=== PATIENT | female | born 1990 | race Asian ===

== ENCOUNTER 2019-10-04 07:30 | Inpatient (IN) ==
[2019-10-04] MEDS ORDERED: DEXTROSE 50% 50 ML SYRINGE IV PRN (07:47)
[2019-10-04] MEDS ORDERED: INSULIN REGULAR 250 UNITS in SODIUM CHLORIDE 0.9% 247.5 ML IV PRN (07:47)
[2019-10-04] MEDS ORDERED: DEXTROSE 5% 1,000 ML IV PRN (07:47)
[2019-10-04] MEDS ORDERED: OXYTOCIN 30 UNITS/500 ML BAG IV PRN ×2 (07:47)
[2019-10-04] MEDS ORDERED: SODIUM CHLORIDE 0.9% 1000ML 1,000 ML IV PRN (07:47)
[2019-10-04] MEDS ORDERED: PENICILLIN G POTASSIUM 6 MU in DEXTROSE 5% 250 ML IV STA (08:25)
[2019-10-04 08:26] LABS: Hematocrit (blood only) 38.4 % (37-47); Hemoglobin 12.5 g/dL (12.0-16.0); Mean Corpuscular Hemoglobin 29.1 pg (25-34); Mean Corpuscular Volume 89.5 fL (80-100); Mean Platelet Volume 9.8 fL (7.4-10.4); Platelet Count 193 K/uL (130-400); RDW Coefficient of Variation 15.4 % (11.5-14.5); RDW Standard Deviation 49.9 fL (36.4-46.3); Red Blood Count 4.29 M/uL (4.2-5.4); White Blood Count 9.37 K/uL (4.8-10.8)
[2019-10-04 08:28] LABS: Mean Corpuscular Hgb Conc 32.6 g/dL (32-36)
[2019-10-04] MEDS: LACTATED RINGER'S 1,000 ML IV PRN ×3 (09:49→20:21)
--- NOTE | 2019-10-04 09:50 | History & Physical Report ---
Date of Service October 04, 2019 Assessment & Plan (1) Supervision of normal intrauterine in primigravida: (2) Insulin controlled gestational diabetes mellitus (GDM) during , antepartum: (3) Large for gestational age fetus: admit, iv, labs. check bsg q2hr. insulin protocol if needed. pitocin now and pcn for gbs pos. plan arom with labor pattern or after 1st dose abx in. History of Present Illness Chief Complaint: planned induction Primary Care Provider: NO PCP 28yo at 39wks ega with cc of planned induction due to gdm on insulin. She denies complaints. Did come for james ripening balloon last pm, it fell out before she left. +FM. no rom, no vb. no ctx. pnc c/b 1. gdm on insulin--last growth us with lga 2. gbs pos pnl rh pos, ri, gbs pos obh: g1 gynh: nl paps no stds pmh: neg psh: neg sh: no tob, etoh or drugs fh: no anthony anom or mr Allergies Allergy/AdvReac Type Severity Reaction Status Date / Time No Known Allergies Allergy Verified 10/04/19 07:43 Home Medications Home Medications Medication Instructions Recorded Confirmed Type pen needle, diabetic 32 gauge x #150 ea 08/19/19 10/03/19 Rx 5/32" breast pump #1 ea 09/20/19 10/03/19 Rx PNV cmb#95-ferrous fumarate-FA 1 tab PO DAILY 10/03/19 10/04/19 History [] Saccharomyces boulardii 1 tab PO DAILY 10/03/19 10/04/19 History ascorbic acid (vitamin C) 1 cap PO DAILY 10/03/19 10/04/19 History ferrous sulfate 1 cap PO DAILY 10/03/19 10/04/19 History insulin NPH isoph U-100 human 30 units SQ BID 10/03/19 10/04/19 History [Humulin N NPH Insulin KwikPen] insulin lispro [Humalog KwikPen 50 units SQ TID 10/03/19 10/04/19 History Insulin] omega-3 fatty acids 1 cap PO DAILY 10/03/19 10/04/19 History Patient History Medical History (Updated 10/04/19 @ 09:49 by Fern Pulido MD, FACOG) Abnormal biochemical finding on screening of mother Diet controlled gestational diabetes mellitus (GDM), antepartum Varicella vaccine Social History Preferred Language: Telugu Communication Ability: Effective 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 Beliefs That Will Affect Care: Yarsani Yarsani Beliefs: hinduism marital status: marital status details: Manan Hicks (30) [phone] Current Living Situation: Spouse current occupational status: employed Other Information That Helps Us Care for You: No Feels Safe at Home: Yes Safety Concerns: Feels Safe At This Time Smoking Status: Never smoker Hx Alcohol Use: No Hx Substance Use: No Review of Systems All systems reviewed & are unremarkable except as noted in HPI & below Physical Exam Constitutional: WD/WN, vitals as above Respiratory: normal respiratory effort, lungs clear to auscultation Cardiovascular: Rate/Rhythm: regular rate and regular rhythm Neurologic: grossly normal Psychiatric: A+Ox3, euthymic affect Genitourinary: OB Exam Abdomen: + estimated weight (8-9#) Manual OB Exam: + cervical dilation (3-4), + cervical effacement (75%) and + station -2 OB Exam Monitor Tracing: + external FHT monitor used (135 mod variability, reactive), + external uterine monitor used (q3-4), + category I and + normal FHT variability Results & Data Vital Signs (Past 12 Hours) Vital Signs Temp Pulse Resp BP 10/04/19 07:38 98.2 F 121 H 20 116/62 Code Status & VTE Plan VTE Prophylaxis Plan VTE Prophylaxis will be ordered: Yes Coding Level of Care Code None Diagnoses Supervision of normal intrauterine in primigravida Z34.00 Insulin controlled gestational diabetes mellitus (GDM) during , antepartum O24.414 Large for gestational age fetus
[2019-10-04] MEDS ORDERED: BUPIVACAINE 0.25% 30 ML VIAL ONE (13:08)
[2019-10-04] MEDS ORDERED: fentaNYL citrate 100 MCG/2 ML VIAL ONE (13:08)
[2019-10-04] MEDS ORDERED: ePHEDrine sulfate 50 MG/ML AMP ONE (13:08)
[2019-10-04] MEDS ORDERED: fentaNYL 2MCG/ML ROPIV 1.25MG/ML 100 ML BAG EPI ONE (13:09)
--- NOTE | 2019-10-04 13:20 | Anesthesiology Consultation ---
Date of Service October 04, 2019 Assessment & Plan (1) Encounter for pre-operative examination: Chart Review Chart Review: Acceptable Risk for Labor Epidural Consults Requested none ASA ASA2 Proposed Anesthesia Anesthesia Type: Labor Epidural Risk / Benefits Reviewed With: PT / POA / Parent / Guardian, Accepts Plan and Informed Consent Obtained History Height/Weight Height: 5 ft 2.5 in Weight: 87.09 kg Allergies Allergy/AdvReac Type Severity Reaction Status Date / Time No Known Allergies Allergy Verified 10/04/19 07:43 Medications Home Medications Medication Instructions Recorded Confirmed Last Taken pen needle, diabetic 32 gauge x #150 ea 08/19/19 10/03/19 Unknown 5/32" breast pump #1 ea 09/20/19 10/03/19 Unknown PNV cmb#95-ferrous fumarate-FA 1 tab PO DAILY 10/03/19 10/04/19 10/04/19 06:00 [] Saccharomyces boulardii 1 tab PO DAILY 10/03/19 10/04/19 10/04/19 06:00 ascorbic acid (vitamin C) 1 cap PO DAILY 10/03/19 10/04/19 10/04/19 06:00 ferrous sulfate 1 cap PO DAILY 10/03/19 10/04/19 10/04/19 06:00 insulin NPH isoph U-100 human 30 units SQ BID 10/03/19 10/04/19 10/03/19 23:00 [Humulin N NPH Insulin KwikPen] insulin lispro [Humalog KwikPen 50 units SQ TID 10/03/19 10/04/19 10/04/19 06:00 Insulin] omega-3 fatty acids 1 cap PO DAILY 10/03/19 10/04/19 10/04/19 06:00 Active Medications Generic Name Dose Route Start Last Admin Trade Name Freq PRN Reason Stop Dose Admin Lactated Ringer's 1,000 mls @ 125 mls/hr 10/04/19 07:47 10/04/19 13:00 Lr IV 10/06/19 07:46 999 mls/hr .Q8H PRN Infusion L&D Protocol Protocol Oxytocin 30 units in 500 mls @ 7 mls/hr 10/04/19 07:47 10/04/19 12:05 Pitocin IV 10/06/19 07:46 0.42 units/hr .Q24H PRN 7 mls/hr Labor Induction/Augmentation Titration Protocol 0.42 UNITS/HR Past Medical History Medical History Abnormal biochemical finding on screening of mother Diet controlled gestational diabetes mellitus (GDM), antepartum Varicella vaccine Exercise / Class Metabolic Activity II 4-5 Yardwork/Stairs/Walk up hill Past Family History Family History Father Hypertension Past Surgical History Surgical History No pertinent past surgical history Past Anesthesia History No Hx of Anesthesia Complications and No Family Hx of Anesthesia Complications History of PONV No Hx of PONV and No Hx of Motion Sickness Social History Smoking Status: Never smoker Hx Alcohol Use: No Hx Substance Use: No Physical Exam Vital Signs Last Vital Signs Temp 97.5 F L 10/04/19 11:15 Pulse 99 H 10/04/19 13:14 Resp 18 10/04/19 12:16 BP 117/67 10/04/19 12:59 Pulse Ox 98 10/04/19 13:14 ENMT Mouth: no dentition abnormality Thyromental Distance: > or= 3.5 Finger Breadths Mallampati Class: II Neck normal visual inspection Respiratory normal respiratory effort Auscultation: lungs clear to auscultation bilaterally Cardiovascular Rate/Rhythm: regular rate and regular rhythm Testing Laboratory Results 10/04/19 08:03 10/04/19 10/04/19 10/04/19 11:01 09:10 08:06 POC Glucose 101 H 82 79
[2019-10-04] MEDS ORDERED: ONDANSETRON INJ 2 MG/ML 2 ML VIAL IV PRN (13:40)
[2019-10-04] MEDS ORDERED: NALBUPHINE HCL INJ 10 MG/ML AMP IV PRN (13:40)
[2019-10-04] MEDS ORDERED: ePHEDrine sulfate 50 MG/ML AMP IV PRN (13:40)
[2019-10-04] MEDS ORDERED: DiphenhydrAMINE HCL 50 MG/ML VIAL IV PRN (13:40)
[2019-10-04] MEDS ORDERED: fentaNYL 2MCG/ML ROPIV 1.25MG/ML 100 ML BAG EPI PRN (13:40)
[2019-10-04] MEDS ORDERED: NALOXONE HCL 0.4 MG/1 ML VIAL/CARP IV PRN (13:40)
[2019-10-04] MEDS ORDERED: NALOXONE HCL 1 MG in SODIUM CHLORIDE 0.9% 1000ML 1,000 ML IV PRN (13:40)
[2019-10-04] MEDS: PENICILLIN G POTASSIUM 3 MU in DEXTROSE 5% 100 ML IV PRN ×3 (13:54→22:02)
--- NOTE | 2019-10-04 14:59 | Labor Progress Brief Note ---
Date of Service October 04, 2019 Subjective Reason For Note: Other (Change of coverage) 28yo at 39 weeks GA, GDM on insulin being induced for GDM on insulin. Pt received epidural and is now comfortable/ Assessment & Plan (1) Insulin controlled gestational diabetes mellitus (GDM) during , antepartum: - tracing re-assuring - continue pitocin - sugars stable - IUPC placed Physical Exam Genitourinary: Cervix: 3-4/80/-2, AROM, clear, IUPC placed, tracing Cat II with moderate variability and accelerations Results & Data Vital Signs (Past 12 Hours) Vital Signs Temp Pulse Resp BP Pulse Ox 10/04/19 14:54 90 98 10/04/19 14:49 87 98 10/04/19 14:46 90 108/59 L 10/04/19 14:44 89 100 10/04/19 14:39 95 H 98 10/04/19 14:34 90 98 10/04/19 14:30 20 10/04/19 14:29 90 98 10/04/19 14:25 90 118/69 10/04/19 14:24 87 98 10/04/19 14:19 95 H 123/78 98 10/04/19 14:14 85 119/67 98 10/04/19 14:09 93 H 116/68 98 10/04/19 14:05 20 10/04/19 14:04 82 99 10/04/19 14:03 93 H 112/67 10/04/19 13:59 90 98 10/04/19 13:56 85 20 113/69 10/04/19 13:54 92 H 20 113/69 99 10/04/19 13:52 99 H 112/67 10/04/19 13:50 95 H 20 113/64 10/04/19 13:49 99 H 99 10/04/19 13:48 102 H 111/66 10/04/19 13:46 102 H 110/63 10/04/19 13:44 95 H 111/62 99 10/04/19 13:42 100 H 111/59 L 10/04/19 13:40 91 H 114/63 10/04/19 13:39 96 H 99 10/04/19 13:38 98 H 20 115/64 10/04/19 13:37 83 120/67 10/04/19 13:34 85 99 10/04/19 13:29 82 99 10/04/19 13:24 93 H 99 10/04/19 13:19 95 H 98 10/04/19 13:14 99 H 98 10/04/19 13:09 98 H 98 10/04/19 13:04 95 H 99 10/04/19 12:59 118 H 117/67 93 10/04/19 12:16 90 18 118/74 10/04/19 11:15 97.5 F L 87 18 112/73 10/04/19 10:31 97 H 121/73 10/04/19 09:49 94 H 121/66 10/04/19 07:38 98.2 F 121 H 20 116/62 Coding Level of Care Code None Diagnoses Insulin controlled gestational diabetes mellitus (GDM) during , antepartum O24.414
--- NOTE | 2019-10-04 17:22 | Labor Progress Brief Note ---
Date of Service October 04, 2019 Subjective Reason For Note: Requested By RN (IUPC not functioning) Assessment & Plan (1) Insulin controlled gestational diabetes mellitus (GDM) during , antepartum: - tracing Cat II - continue pitocin Physical Exam Genitourinary: Cervix: 4-5/100/-1; IUPC replaced Results & Data Vital Signs (Past 12 Hours) Vital Signs Temp Pulse Resp BP Pulse Ox 10/04/19 17:19 113 H 98 10/04/19 17:15 112 H 135/67 10/04/19 17:14 114 H 97 10/04/19 17:09 109 H 20 97 10/04/19 17:04 107 H 99 10/04/19 17:00 106 H 134/73 10/04/19 16:59 107 H 98 10/04/19 16:54 103 H 98 10/04/19 16:49 94 H 98 10/04/19 16:45 98 H 135/67 10/04/19 16:44 99 H 98 10/04/19 16:41 99.9 F H 20 10/04/19 16:39 97 H 98 10/04/19 16:34 95 H 98 10/04/19 16:29 92 H 125/64 99 10/04/19 16:24 98 H 98 10/04/19 16:19 95 H 98 10/04/19 16:14 91 H 129/77 98 10/04/19 16:09 87 98 10/04/19 16:04 94 H 98 10/04/19 16:03 98 H 125/76 10/04/19 15:59 90 99 10/04/19 15:54 92 H 100 10/04/19 15:49 97 H 98 10/04/19 15:44 95 H 121/67 98 10/04/19 15:39 92 H 99 10/04/19 15:34 87 98 10/04/19 15:29 86 20 117/63 99 10/04/19 15:24 89 99 10/04/19 15:19 86 99 10/04/19 15:14 90 18 110/60 99 10/04/19 15:09 89 99 10/04/19 15:04 97 H 97 10/04/19 14:59 98.1 F 84 20 110/63 98 10/04/19 14:54 90 98 10/04/19 14:49 87 98 10/04/19 14:46 90 108/59 L 10/04/19 14:44 89 100 10/04/19 14:39 95 H 98 10/04/19 14:34 90 98 10/04/19 14:30 20 10/04/19 14:29 90 98 10/04/19 14:25 90 118/69 10/04/19 14:24 87 98 10/04/19 14:19 95 H 123/78 98 10/04/19 14:14 85 119/67 98 10/04/19 14:09 93 H 116/68 98 10/04/19 14:05 20 10/04/19 14:04 82 99 10/04/19 14:03 93 H 112/67 10/04/19 13:59 90 98 10/04/19 13:56 85 20 113/69 10/04/19 13:54 92 H 20 113/69 99 10/04/19 13:52 99 H 112/67 10/04/19 13:50 95 H 20 113/64 10/04/19 13:49 99 H 99 10/04/19 13:48 102 H 111/66 10/04/19 13:46 102 H 110/63 10/04/19 13:44 95 H 111/62 99 10/04/19 13:42 100 H 111/59 L 10/04/19 13:40 91 H 114/63 10/04/19 13:39 96 H 99 10/04/19 13:38 98 H 20 115/64 10/04/19 13:37 83 120/67 10/04/19 13:34 85 99 10/04/19 13:29 82 99 10/04/19 13:24 93 H 99 10/04/19 13:19 95 H 98 10/04/19 13:14 99 H 98 10/04/19 13:09 98 H 98 10/04/19 13:04 95 H 99 10/04/19 12:59 118 H 117/67 93 10/04/19 12:16 90 18 118/74 10/04/19 11:15 97.5 F L 87 18 112/73 10/04/19 10:31 97 H 121/73 10/04/19 09:49 94 H 121/66 10/04/19 07:38 98.2 F 121 H 20 116/62 Coding Level of Care Code None Diagnoses Insulin controlled gestational diabetes mellitus (GDM) during , antepartum O24.414
[2019-10-04] MEDS ORDERED: ACETAMINOPHEN 500 MG TAB PO PRN (18:00)
--- NOTE | 2019-10-04 20:04 | Labor Progress Brief Note ---
Date of Service October 04, 2019 Subjective Reason For Note: Requested By RN (increased temp) Assessment & Plan (1) Insulin controlled gestational diabetes mellitus (GDM) during , antepartum: - tracing Cat II - membranes ruptures for only 6 hours - do not suspect chorio - suspect epidural fever - will give more tylenol Physical Exam Genitourinary: Cervix: 6-7/100/-1; Results & Data Vital Signs (Past 12 Hours) Vital Signs Temp Pulse Resp BP Pulse Ox 10/04/19 19:59 117 H 117/63 96 10/04/19 19:54 117 H 96 10/04/19 19:49 113 H 96 10/04/19 19:44 116 H 116/59 L 97 10/04/19 19:39 115 H 96 10/04/19 19:34 115 H 96 10/04/19 19:29 112 H 110/69 97 10/04/19 19:24 120 H 96 10/04/19 19:19 106 H 95 10/04/19 19:15 114 H 131/67 10/04/19 19:14 118 H 97 10/04/19 19:11 101.5 F H 18 10/04/19 19:09 113 H 96 10/04/19 19:04 120 H 96 10/04/19 18:59 112 H 126/61 97 10/04/19 18:54 116 H 97 10/04/19 18:49 116 H 97 10/04/19 18:45 117 H 120/59 L 10/04/19 18:44 111 H 96 10/04/19 18:39 116 H 96 10/04/19 18:34 116 H 97 10/04/19 18:29 115 H 126/60 97 10/04/19 18:24 114 H 97 10/04/19 18:19 114 H 98 10/04/19 18:14 112 H 132/65 98 10/04/19 18:09 117 H 97 10/04/19 18:04 113 H 97 10/04/19 17:59 112 H 129/67 97 10/04/19 17:56 101.7 F H 20 10/04/19 17:54 117 H 97 10/04/19 17:49 117 H 97 10/04/19 17:44 115 H 133/66 97 10/04/19 17:39 113 H 97 03/17/20 17:34 109 H 98 03/17/20 17:29 112 H 130/72 97 03/17/20 17:24 110 H 98 03/17/20 17:19 113 H 98 03/17/20 17:15 112 H 135/67 0317/20 17:14 114 H 97 0317/20 17:09 109 H 20 97 03/17/20 17:04 107 H 99 0317/20 17:00 106 H 134/73 0317/20 16:59 107 H 98 0317/20 16:54 103 H 98 17/20 16:49 94 H 98 0317/20 16:45 98 H 135/67 17/20 16:44 99 H 98 17/20 16:41 99.9 F H 20 10/03/20 16:39 97 H 98 17/20 16:34 95 H 98 0317/20 16:29 92 H 125/64 99 03/20 16:24 98 H 98 17/20 16:19 95 H 98 17/20 16:14 91 H 129/77 98 17/20 16:09 87 98 0317/20 16:04 94 H 98 17/20 16:03 98 H 125/76 0317/20 15:59 90 99 0317/20 15:54 92 H 100 17/20 15:49 97 H 98 17/20 15:44 95 H 121/67 98 0317/20 15:39 92 H 99 0317/20 15:34 87 98 0317/20 15:29 86 20 117/63 99 03/17/20 15:24 89 99 03/17/20 15:19 86 99 0317/20 15:14 90 18 110/60 99 0317/20 15:09 89 99 03/17/20 15:04 97 H 97 17/20 14:59 98.1 F 84 20 110/63 98 0317/20 14:54 90 98 17/20 14:49 87 98 17/20 14:46 90 108/59 L 20 14:44 89 100 0317/20 14:39 95 H 98 17/20 14:34 90 98 03/17/20 14:30 20 10/04/19 14:29 90 98 10/04/19 14:25 90 118/69 10/04/19 14:24 87 98 10/04/19 14:19 95 H 123/78 98 10/04/19 14:14 85 119/67 98 10/04/19 14:09 93 H 116/68 98 10/04/19 14:05 20 10/04/19 14:04 82 99 10/04/19 14:03 93 H 112/67 10/04/19 13:59 90 98 10/04/19 13:56 85 20 113/69 10/04/19 13:54 92 H 20 113/69 99 10/04/19 13:52 99 H 112/67 10/04/19 13:50 95 H 20 113/64 10/04/19 13:49 99 H 99 10/04/19 13:48 102 H 111/66 10/04/19 13:46 102 H 110/63 10/04/19 13:44 95 H 111/62 99 10/04/19 13:42 100 H 111/59 L 10/04/19 13:40 91 H 114/63 10/04/19 13:39 96 H 99 10/04/19 13:38 98 H 20 115/64 10/04/19 13:37 83 120/67 10/04/19 13:34 85 99 10/04/19 13:29 82 99 10/04/19 13:24 93 H 99 10/04/19 13:19 95 H 98 10/04/19 13:14 99 H 98 10/04/19 13:09 98 H 98 10/04/19 13:04 95 H 99 10/04/19 12:59 118 H 117/67 93 10/04/19 12:16 90 18 118/74 10/04/19 11:15 97.5 F L 87 18 112/73 10/04/19 10:31 97 H 121/73 10/04/19 09:49 94 H 121/66 Coding Level of Care Code None Diagnoses Insulin controlled gestational diabetes mellitus (GDM) during , antepartum O24.414
[2019-10-04] MEDS ORDERED: ACETAMINOPHEN 500 MG TAB PO STA (20:05)
--- NOTE | 2019-10-04 21:23 | Labor Progress Brief Note ---
Date of Service October 04, 2019 Subjective Reason For Note: Requested By RN (tracing evaluation) Called to evaluate tracing. RN d/c'd pitocin for late decles for 30 minutes Assessment & Plan (1) Insulin controlled gestational diabetes mellitus (GDM) during , antepartum: - tracing Cat II with variability and accelerations - will restart pitocin at 7mU - continue labor Physical Exam Genitourinary: Cervix: 8/100/-1, heavy bloody show Results & Data Vital Signs (Past 12 Hours) Vital Signs Temp Pulse Resp BP Pulse Ox 10/04/19 21:15 109 H 128/64 10/04/19 21:14 108 H 99 10/04/19 21:09 108 H 99 10/04/19 21:05 100.2 F H 10/04/19 21:04 109 H 99 10/04/19 21:00 110 H 121/64 10/04/19 20:59 110 H 99 10/04/19 20:54 112 H 99 10/04/19 20:49 108 H 100 10/04/19 20:44 100 H 124/60 100 10/04/19 20:39 111 H 97 10/04/19 20:34 109 H 97 10/04/19 20:29 107 H 129/68 96 10/04/19 20:24 105 H 96 10/04/19 20:19 106 H 96 10/04/19 20:14 105 H 108/56 L 97 10/04/19 20:11 101.8 F H 20 10/04/19 20:09 111 H 97 10/04/19 20:04 117 H 96 10/04/19 19:59 117 H 117/63 96 10/04/19 19:54 117 H 96 10/04/19 19:49 113 H 96 10/04/19 19:44 116 H 116/59 L 97 10/04/19 19:39 115 H 96 10/04/19 19:34 115 H 96 10/04/19 19:29 112 H 110/69 97 10/04/19 19:24 120 H 96 10/04/19 19:19 106 H 95 10/04/19 19:15 114 H 131/67 10/04/19 19:14 118 H 97 10/04/19 19:11 101.5 F H 18 10/04/19 19:09 113 H 96 03/17/20 19:04 120 H 96 03/17/20 18:59 112 H 126/61 97 03/17/20 18:54 116 H 97 03/17/20 18:49 116 H 97 03/17/20 18:45 117 H 120/59 L 03/17/20 18:44 111 H 96 03/17/20 18:39 116 H 96 03/17/20 18:34 116 H 97 03/17/20 18:29 115 H 126/60 97 03/17/20 18:24 114 H 97 03/17/20 18:19 114 H 98 03/17/20 18:14 112 H 132/65 98 03/17/20 18:09 117 H 97 03/17/20 18:04 113 H 97 03/17/20 17:59 112 H 129/67 97 03/17/20 17:56 101.7 F H 20 17/20 17:54 117 H 97 03/17/20 17:49 117 H 97 0317/20 17:44 115 H 133/66 97 03/17/20 17:39 113 H 97 0317/20 17:34 109 H 98 03/17/20 17:29 112 H 130/72 97 03/17/20 17:24 110 H 98 03/17/20 17:19 113 H 98 03/17/20 17:15 112 H 135/67 0317/20 17:14 114 H 97 03/17/20 17:09 109 H 20 97 03/17/20 17:04 107 H 99 03/17/20 17:00 106 H 134/73 0317/20 16:59 107 H 98 03/17/20 16:54 103 H 98 03/17/20 16:49 94 H 98 03/17/20 16:45 98 H 135/67 03/17/20 16:44 99 H 98 03/17/20 16:41 99.9 F H 20 03/17/20 16:39 97 H 98 03/17/20 16:34 95 H 98 03/17/20 16:29 92 H 125/64 99 03/17/20 16:24 98 H 98 03/17/20 16:19 95 H 98 03/17/20 16:14 91 H 129/77 98 03/17/20 16:09 87 98 03/17/20 16:04 94 H 98 10/04/19 16:03 98 H 125/76 10/04/19 15:59 90 99 10/04/19 15:54 92 H 100 10/04/19 15:49 97 H 98 10/04/19 15:44 95 H 121/67 98 10/04/19 15:39 92 H 99 10/04/19 15:34 87 98 10/04/19 15:29 86 20 117/63 99 10/04/19 15:24 89 99 10/04/19 15:19 86 99 10/04/19 15:14 90 18 110/60 99 10/04/19 15:09 89 99 10/04/19 15:04 97 H 97 10/04/19 14:59 98.1 F 84 20 110/63 98 10/04/19 14:54 90 98 10/04/19 14:49 87 98 10/04/19 14:46 90 108/59 L 10/04/19 14:44 89 100 10/04/19 14:39 95 H 98 10/04/19 14:34 90 98 10/04/19 14:30 20 10/04/19 14:29 90 98 10/04/19 14:25 90 118/69 10/04/19 14:24 87 98 10/04/19 14:19 95 H 123/78 98 10/04/19 14:14 85 119/67 98 10/04/19 14:09 93 H 116/68 98 10/04/19 14:05 20 10/04/19 14:04 82 99 10/04/19 14:03 93 H 112/67 10/04/19 13:59 90 98 10/04/19 13:56 85 20 113/69 10/04/19 13:54 92 H 20 113/69 99 10/04/19 13:52 99 H 112/67 10/04/19 13:50 95 H 20 113/64 10/04/19 13:49 99 H 99 10/04/19 13:48 102 H 111/66 10/04/19 13:46 102 H 110/63 10/04/19 13:44 95 H 111/62 99 10/04/19 13:42 100 H 111/59 L 10/04/19 13:40 91 H 114/63 10/04/19 13:39 96 H 99 10/04/19 13:38 98 H 20 115/64 10/04/19 13:37 83 120/67 10/04/19 13:34 85 99 10/04/19 13:29 82 99 10/04/19 13:24 93 H 99 10/04/19 13:19 95 H 98 10/04/19 13:14 99 H 98 10/04/19 13:09 98 H 98 10/04/19 13:04 95 H 99 10/04/19 12:59 118 H 117/67 93 10/04/19 12:16 90 18 118/74 10/04/19 11:15 97.5 F L 87 18 112/73 10/04/19 10:31 97 H 121/73 10/04/19 09:49 94 H 121/66 Coding Level of Care Code None Diagnoses Insulin controlled gestational diabetes mellitus (GDM) during , antepartum O24.414
[2019-10-05] MEDS: LACTATED RINGER'S 1,000 ML IV PRN ×2 (01:41→05:00)
--- NOTE | 2019-10-05 02:33 | Delivery Summary ---
Vaginal Delivery Summary Date of Service October 05, 2019 Vaginal Delivery Summary Findings: Viable male infant with Apgars of 8 and 9, nuchal cord x1, delivered over a midline second-degree laceration with third-degree extension, right sulcus tear. Placenta delivered spontaneously. Lacerations and tears repaired with 4-0 and 2-0 Vicryl. Fontenot catheter placed to continuous drainage, vaginal packing placed. Estimated blood loss 500 cc Labor note: The patient is a 28-year-old 1 para 0 with an EDC of 10 October who was admitted at 39 weeks gestational age for induction for gestational diabetes on insulin. GDM was diagnosed at 28 weeks. Abdominal circumferences were greater than 75th percentile and the patient was started on insulin. Patient was followed per GDM insulin protocol. Last estimated weight at 36 weeks was greater than the 98th percentile, and induction was planned for 39 weeks. The patient's course has otherwise been unremarkable. Her blood type is A+, antibody negative, rubella immune, hepatitis B negative, she had a negative cell free DNA screen, and she had a positive third trimester beta strep culture for GBS. Upon admission the patient was minimally dilated. She was started on Pitocin per induction protocol and progressed into a regular labor pattern. When she became uncomfortable anesthesia was consulted and an epidural was placed. Following placement of the epidural the patient was 3 to 4 cm dilated. Delivering physician assumed care for the patient at this point. Because of the GBS status the patient had been started on penicillin 6,000,000 unit loading dose then 3,000,000 units every 4 hours. Artificial rupture of membranes for clear fluid and intrauterine pressure catheter was placed. Pitocin again was titrated to get an adequate labor pattern. Approximately 3 hours after rupture of membranes and the patient spiked a temperature. This was not felt to be chorioamnionitis as it was 3 hours after rupture of membranes. Suspect that the pyrexia was secondary to the epidural. Patient was intermittently cathed with the epidural. Dark bloody urine was noted with catheterization. The patient progressed to full dilatation and began her second stage. She pushed for 1 hour 45 minutes delivering a viable male infant. Cord was clamped and cut. Cord gases cord blood samples were obtained. Placenta was delivered spontaneously. Inspection of the vagina showed a right sulcus tear. There was also a midline laceration with third-degree extension. The sphincter muscle was reapproximated with three 2-0 Vicryl [id number] sutures the sulcus tear and midline tear repaired with 4-0 and 2-0 Vicryl. There was moderate edema throughout the entire vagina with generalized oozing from the lacerations. A Fontenot catheter was inserted into the bladder for gross hematuria. Vaginal packing was placed. Estimated blood loss for the delivery 500 cc. Sponge and needle count was correct.
[2019-10-05] MEDS ORDERED: DIPHTHERIA/TETANUS/PERTUSSIS 0.5 ML SYR/VIAL IM ONE (02:36)
[2019-10-05] MEDS ORDERED: BENZOCAINE 20% AER SPR 82.5 GM CAN EXT PRN (02:36)
[2019-10-05] MEDS ORDERED: SUPERCREAM 0.870% 15 GM JAR EXT PRN (02:36)
[2019-10-05] MEDS ORDERED: HYDROCORTISONE ACETATE 25 MG SUPP PR PRN (02:36)
[2019-10-05] MEDS ORDERED: ACETAMINOPHEN 325 MG TAB PO PRN (02:36)
[2019-10-05] MEDS ORDERED: OXYTOCIN 30 UNITS/500 ML BAG IV PRN (02:36)
[2019-10-05 02:42] LABS: Base Excess Cord Venous Blood -2.9 mEq/L (-7.7-1.9); Cord Venous Blood HCO3 22 mmol/L (18.4-26.8); Cord Venous Blood PCO2 37 mmHg (30.4-57.2); Cord Venous Blood PO2 31 mmHg (14.1-43.3); Cord Venous Blood pH 7.39 (7.20-7.44)
[2019-10-05 02:50] LABS: Base Excess Cord Arterial Bld -6.2 mEq/L (-9-1.8); CO2 Cord Arterial Blood 51 mmHg (39.1-73.5); HCO3 Cord Arterial Blood 22 mmol/L (19.7-28.5); PO2 Cord Arterial Blood 23 mmHg (4.1-31.7); pH Cord Arterial Blood 7.24 (7.1-7.38)
[2019-10-05 02:51] LABS: Oxygen Sat Cord Arterial Blood < 60.0 % (<60)
[2019-10-05 06:45] LABS: Hematocrit (blood only) 27.7 % (37-47)
[2019-10-05] MEDS: PRENATAL VITAMIN 1 TAB PO SCH (08:40)
[2019-10-05] MEDS: DOCUSATE SODIUM 100 MG CAP PO SCH ×2 (08:40→21:00)
[2019-10-05] MEDS: FERROUS SULFATE 325 MG TAB PO SCH (08:40)
--- NOTE | 2019-10-05 11:24 | Anesthesia Procedure Note ---
Date of Service October 05, 2019 Anesthesia Post Epidural Note Vital Signs Vital Signs: Temp Pulse Resp BP Pulse Ox 36.4 C L 86 16 95/60 L 97 10/05/19 07:50 10/05/19 07:50 10/05/19 07:50 10/05/19 07:50 10/05/19 05:35 Pain Intensity Bilateral Abdomen: Pain Intensity: 7 Episiotomy/Laceration: Pain Intensity: 3 Notes Mental Status: alert / awake / arousable Nausea / Vomiting: adequately controlled Pain: adequately controlled Airway Patency, RR, SpO2: stable & adequate BP & HR: stable & adequate Hydration State: stable & adequate Neuraxial Anesthesia: was administered and sensory block is resolving Anesthetic Complications: no major complications apparent and Pt Satisfied with anesthetic care Epidural: Removed without complications and With tip intact
[2019-10-05] MEDS: ACETAMINOPHEN W/CODEINE #3 1 TAB PO PRN ×2 (11:43→18:17)
[2019-10-05] MEDS: IBUPROFEN 600 MG TAB PO PRN ×2 (11:43→18:16)
[2019-10-06] MEDS: ACETAMINOPHEN W/CODEINE #3 1 TAB PO PRN (05:37)
[2019-10-06] MEDS: IBUPROFEN 600 MG TAB PO PRN ×2 (05:38→19:58)
--- NOTE | 2019-10-06 06:49 | Obstetrical Progress Note ---
Date of Service <Lesia Pratt DO - Last Filed: 10/06/19 06:50> October 06, 2019 Assessment & Plan <Lesia Pratt DO - Last Filed: 10/06/19 06:50> (1) Encounter for care and examination after delivery: 28 yo F PPD #1 following at 39+ weeks. Doing well and without complaints. - will continue routine care. - following d/c will have follow up in [address] Sethi. Subjective <Lesia Pratt DO - Last Filed: 10/06/19 06:50> 28 yo female ; PPD # 1 following vaginal delivery at 39+weeks; doing well this AM; no abdominal cramping/pain; voiding well; tolerating meals overnight, able to ambulate some within the room. which she reports is going well. Review of Systems Constitutional: denies fever, chills, sweats, headache Respiratory: denies SOB, difficulty breathing Cardiac: denies CP, chest palpitations, chest pressure Breast: denies breast pain : denies dysuria Physical Exam <Lesia Pratt DO - Last Filed: 10/06/19 06:50> General: patient is alert and oriented, in NAD Cardiac: +S1/S2, no murmurs rubs or gallops Respiratory: lungs CTA b/l, anteriorly and posteriorly, no wheezes rales or rhonchi, no increased work of breathing, symmetric chest rise, no respiratory distress Abdomen: soft, NT, +bowel sounds Uterus: uterine fundus firm, palpable below the level of the umbilicus Lower Extremities: no LE edema or swelling, no deep calf pain, Miguelito's sign negative b/l Results & Data <Lesia Pratt DO - Last Filed: 10/06/19 06:50> Vital Signs (Past 12 Hours) Vital Signs Temp Pulse Resp BP 10/05/19 23:00 37.0 C 90 18 100/60 10/05/19 20:00 36.7 C 103 H 18 94/59 L Medications Administered Current Medications Acetaminophen (Tylenol) 650 mg PO Q6H PRN PRN Reason: Pain/JAMES/Fever Stop: 11/04/19 02:35 Acetaminophen/Codeine Phosphate (Tylenol W/Codeine #3) 1 - 2 tab PO Q4H PRN PRN Reason: Pain not controlled with... Stop: 11/04/19 02:35 Last Admin: 10/06/19 05:37 Dose: 1 tab Documented by: Benzocaine (Dermoplast Pain Relieving [place]) 1 appln EXT PRN PRN PRN Reason: Perineal Discomfort Stop: 11/04/19 02:35 Last Admin: 10/05/19 08:39 Dose: 82.5 appln Documented by: Bisacodyl (Dulcolax) 5 mg PO 1999 [facility] Stop: 10/06/19 20:01 Cocaine HCl (Supercream 0.870%) 1 gm EXT BID PRN PRN Reason: Hemorrhoidal Inflammation Stop: 10/19/19 02:35 Docusate Sodium (Colace) 100 mg PO DAILY@08, [facility] Stop: 11/04/19 07:59 Last Admin: 10/05/19 21:00 Dose: 100 mg Documented by: Ferrous Sulfate (Feosol) 325 mg PO DAILY@08 [facility] Stop: 11/04/19 07:59 Last Admin: 10/05/19 08:40 Dose: 325 mg Documented by: Hydrocortisone (Anusol Hc) [address] BID PRN PRN Reason: Hemorrhoidal Inflammation Stop: 11/04/19 02:35 Lactated Ringer's (Lr) 1,000 mls @ 125 mls/hr IV .Q8H PRN; Protocol PRN Reason: L&D Protocol Stop: 10/06/19 07:46 Last Infusion: 10/05/19 09:42 Dose: Infused Documented by: Oxytocin (Pitocin) 30 units in 500 mls @ 333.333 mls/hr IV .Q1H30M PRN; Protocol PRN Reason: Bleeding Control Stop: 11/04/19 02:35 Ibuprofen (Motrin) 600 mg PO Q4H PRN PRN Reason: Pain/JAMES/Cramping/Fever Stop: 11/04/19 02:35 Last Admin: 10/06/19 05:38 Dose: 600 mg Documented by: Prenat Multivit/[place]/Iron/Folic Ac ( Vitamin) 1 tab PO DAILY@08 [facility] Stop: 11/04/19 07:59 Last Admin: 10/05/19 08:40 Dose: 1 tab Documented by: <Catarino Murray MD - Last Filed: 10/06/19 07:39> Co-Signing Physician Notes Patient doing well and agree with above findings and plan. Routine care Resident Activity Tracking <Lesia Pratt DO - Last Filed: 10/06/19 06:50> Resident Involvement: Resident Care Provided Care Provided: OB Delivery
[2019-10-06] MEDS: PRENATAL VITAMIN 1 TAB PO SCH (08:53)
[2019-10-06] MEDS: FERROUS SULFATE 325 MG TAB PO SCH (08:53)
[2019-10-06] MEDS: DOCUSATE SODIUM 100 MG CAP PO SCH ×2 (08:53→20:00)
[2019-10-06] MEDS ORDERED: bisacodyL 5 MG TABEC PO SCH (20:00)
[2019-10-07 06:34] LABS: Hematocrit (blood only) 23.8 % (37-47); Hemoglobin 7.7 g/dL (12.0-16.0)
--- NOTE | 2019-10-07 06:52 | Obstetrical Progress Note ---
Date of Service <Lesia Vazquezivone - Last Filed: 10/07/19 06:54> October 07, 2019 Assessment & Plan <Lesia PrattDO - Last Filed: 10/07/19 06:54> (1) Encounter for care and examination after delivery: 28 yo F PPD #1 following at 39+ weeks. Doing well and without complaints. - for discharge today. - went over warning signs for blood loss anemia such as shortness of breath, dizziness, overwhelming fatigue. - following d/c will have follow up in [address] Sethi. Subjective <Lesia VazquezDO ivone - Last Filed: 10/07/19 06:54> 28 yo female ; PPD # 2 following vaginal delivery at 39+weeks; doing well this AM; no abdominal cramping/pain; voiding well; tolerating meals overnight, able to ambulate some within the room. which she reports is going well. Review of Systems Constitutional: denies fever, chills, sweats, headache Respiratory: denies SOB, difficulty breathing Cardiac: denies CP, chest palpitations, chest pressure Breast: denies breast pain : denies dysuria Physical Exam <Lesia VazquezDO ivone - Last Filed: 10/07/19 06:54> General: patient is alert and oriented, in NAD Cardiac: +S1/S2, no murmurs rubs or gallops Respiratory: lungs CTA b/l, anteriorly and posteriorly, no wheezes rales or rhonchi, no increased work of breathing, symmetric chest rise, no respiratory distress Abdomen: soft, NT, +bowel sounds Uterus: uterine fundus firm, palpable below the level of the umbilicus Lower Extremities: no LE edema or swelling, no deep calf pain, Miguelito's sign negative b/l Results & Data <Lesia VazquezDO ivone - Last Filed: 10/07/19 06:54> Vital Signs (Past 12 Hours) Vital Signs Temp Pulse Resp BP Pulse Ox 10/06/19 23:30 37.1 C 90 16 113/72 97 10/06/19 19:45 37.2 C 96 H 18 123/72 96 Laboratory Results Laboratory Results - last 24 hr 10/07/19 06:10 Hgb 7.7 L Hct 23.8 L Medications Administered Current Medications Acetaminophen (Tylenol) 650 mg PO Q6H PRN PRN Reason: Pain/JAMES/Fever Stop: 11/04/19 02:35 Acetaminophen/Codeine Phosphate (Tylenol W/Codeine #3) 1 - 2 tab PO Q4H PRN PRN Reason: Pain not controlled with... Stop: 11/04/19 02:35 Last Admin: 10/06/19 05:37 Dose: 1 tab Documented by: Benzocaine (Dermoplast Pain Relieving Spray) 1 appln EXT PRN PRN PRN Reason: Perineal Discomfort Stop: 11/04/19 02:35 Last Admin: 10/05/19 08:39 Dose: 82.5 appln Documented by: Cocaine HCl (Supercream 0.870%) 1 gm EXT BID PRN PRN Reason: Hemorrhoidal Inflammation Stop: 10/19/19 02:35 Docusate Sodium (Colace) 100 mg PO DAILY@08,21 [facility] Stop: 11/04/19 07:59 Last Admin: 10/06/19 20:00 Dose: 100 mg Documented by: Ferrous Sulfate (Feosol) 325 mg PO DAILY@08 [facility] Stop: 11/04/19 07:59 Last Admin: 10/06/19 08:53 Dose: 325 mg Documented by: Hydrocortisone (Anusol Hc) 25 mg [place] BID PRN PRN Reason: Hemorrhoidal Inflammation Stop: 11/04/19 02:35 Oxytocin (Pitocin) 30 units in 500 mls @ 333.333 mls/hr IV .Q1H30M PRN; Protocol PRN Reason: Bleeding Control Stop: 11/04/19 02:35 Ibuprofen (Motrin) 600 mg PO Q4H PRN PRN Reason: Pain/JAMES/Cramping/Fever Stop: 11/04/19 02:35 Last Admin: 10/06/19 19:58 Dose: 600 mg Documented by: Prenat Multivit/[place]/Iron/Folic Ac ( Vitamin) 1 tab PO DAILY@08 [facility] Stop: 11/04/19 07:59 Last Admin: 10/06/19 08:53 Dose: 1 tab Documented by: <Sheeba Melton DO - Last Filed: 10/07/19 07:05> Co-Signing Physician Notes Resident Physician Supervision Note: I interviewed and examined the patient. Discussed with Dr. Pratt and agree with findings and plan as documented in the note. Any exceptions or clarifications are listed here: PPD#2 doing well. Discharge instructions reviewed. She will followup with office in 6w. Documented By: Sheeba Melton DO Resident Activity Tracking <Lesia Pratt DO - Last Filed: 10/07/19 06:54> Resident Involvement: Resident Care Provided Care Provided: OB Delivery
[2019-10-07] MEDS: IBUPROFEN 600 MG TAB PO PRN (07:29)
[2019-10-07] MEDS: DOCUSATE SODIUM 100 MG CAP PO SCH (08:10)
[2019-10-07] MEDS: PRENATAL VITAMIN 1 TAB PO SCH (08:10)
[2019-10-07] MEDS: FERROUS SULFATE 325 MG TAB PO SCH (08:11)
== END 2019-10-07 13:29 | disposition home or self-care (01) | DRG 768 ==
LOC: 4S1 07:30 → 4S2 10-05 05:43